=== PATIENT | female | born 2000 | race African-American/Black ===

== ENCOUNTER 2024-04-30 14:35 | Emergency (ER) | payer OTHER, SELFPAY ==
[2024-04-30] MEDS ORDERED: Proparacaine 0.5% Opth 15 ML BOT ONE (15:43)
== END 2024-04-30 16:05 | disposition home or self-care (01) ==
LOC: ERS 14:35
DX: S05.02XA Injury of conjunctiva and corneal abrasion without foreign body, left eye, initial encounter (principal); W50.4XXA Accidental scratch by another person, initial encounter
CPT/HCPCS: 99282